=== PATIENT | female | born 1940 | race Caucasian/White ===

== ENCOUNTER 2017-06-12 10:00 | Inpatient (IN) | payer MEDICARE, OTHER ==
[~2017-06-12] VITALS: Ht 157.5 cm; Wt 86.2 kg
[2017-06-12] MEDS ORDERED: LOSA50TA PO (10:50)
[2017-06-12] MEDS ORDERED: ASPI-110 PO (10:50)
[2017-06-12] MEDS ORDERED: MULTTAB27 PO (10:50)
[2017-06-12] MEDS ORDERED: GLIP5TAB8 PO (10:50)
[2017-06-12] MEDS ORDERED: SM M250T PO (10:50)
[2017-06-12] MEDS ORDERED: VITA2000 PO (10:50)
[2017-06-12] MEDS ORDERED: NAPR220C22 PO (10:50)
[2017-06-12] MEDS ORDERED: VITA500C18 PO (10:50)
[2017-06-12] MEDS ORDERED: LEVO25TA4 PO (10:50)
[2017-06-12] MEDS ORDERED: METF1000 PO (10:50)
[2017-06-12] MEDS ORDERED: SIMV20TA PO (10:50)
[2017-07-09] MEDS ORDERED: LACTATED RINGER'S 1000 ML IV PRN (10:15)
[2017-07-09] MEDS ORDERED: POVIDONE IODINE 5% (ANTISEPSIS KIT) 4 APPLICATIONS EACH NARE PRN (10:15)
[2017-07-09] MEDS ORDERED: CHLORHEXIDINE GLUCONATE 4% SOLN 120 ML BTL TOPICAL SCH (10:15)
[2017-07-09] MEDS ORDERED: CHLORHEXIDINE GLUCONATE 2 % 1 PACK (2 CLOTHS) TOPICAL PRN (10:15)
[2017-07-09] MEDS ORDERED: ceFAZolin 2 GM PREMIX 50 ML IV SCH (10:15)
[2017-07-09] MEDS ORDERED: VANCOMYCIN 1000 MG/NS 250 ML (for <70 kg) IV SCH ×2 (10:15)
[2017-07-09] MEDS ORDERED: SODIUM CHLORID 0.9% 500 ML IV PRN (10:15)
[2017-07-09] MEDS ORDERED: INSULIN HUMAN REGULAR 1,000 UNITS/10 ML VIAL SQ PRN (10:15)
[2017-07-09] MEDS ORDERED: METOPROLOL TARTRATE 25 MG TAB PO PRN (10:15)
[2017-07-09] MEDS ORDERED: POVIDONE IODINE 7.5% SCRUB 118 ML BOTTLE TOPICAL SCH (10:15)
[2017-07-09] MEDS ORDERED: DEXAMETHASONE SOD PHOS 20 MG/5 ML VIAL IV SCH (10:30)
[2017-07-09] MEDS ORDERED: LEVO50TA4 PO (10:55)
[2017-07-09] MEDS ORDERED: CALC500T37 PO (10:55)
[2017-07-09] MEDS ORDERED: ALEV220T14 PO (10:55)
[2017-07-09] MEDS ORDERED: GLIP1TAB60 PO (10:55)
[2017-07-09] MEDS ORDERED: VITA10002 PO (10:55)
[2017-07-09] MEDS ORDERED: SODIUM CHLORIDE 0.9% IV SCH (11:00)
[2017-07-09] MEDS ORDERED: TRANEXAMIC PERI-ARTICULAR 3,000 MG/NS 100 ML P-ARTICULR SCH ×2 (11:00)
[2017-07-09] MEDS ORDERED: TRANEXAMIC ACID IV SCH (11:00)
[2017-07-09] MEDS ORDERED: ROPIVACAINE PERI-ARTICULAR INJECTION. P-ARTICULR SCH ×5 (11:00)
[2017-07-09] MEDS ORDERED: BUPIVACAINE LIPOSOME PF 1.3% 20 ML VIAL ONE (11:20)
[2017-07-09] MEDS ORDERED: GENTAMICIN SULFATE 80 MG/2 ML VIAL ONE (12:13)
[2017-07-09] MEDS ORDERED: SODIUM CHLORIDE 0.9% FLUSH 5 ML FLUSH IVF PRN (13:15)
[2017-07-09] MEDS ORDERED: diphenhydrAMINE HCL 50 MG/ML VIAL IV PRN (13:15)
[2017-07-09] MEDS ORDERED: MORPHINE SULFATE 4 MG/ML INJ IV PUSH PRN (13:15)
[2017-07-09] MEDS ORDERED: BISACODYL 10 MG SUPP RECTAL PRN (13:15)
[2017-07-09] MEDS ORDERED: ACETAMINOPHEN/HYDROcodone 325 MG/7.5 MG TAB PO PRN (13:15)
[2017-07-09] MEDS ORDERED: Post-op Orders (for Pharmacy) MISC XX ONE (13:15)
[2017-07-09] MEDS ORDERED: ENOX30P SQ (13:17)
[2017-07-09] MEDS ORDERED: HYDR-3288 PO (13:17)
[2017-07-09] MEDS ORDERED: ASPI81CH37 CHEW (13:19)
[2017-07-09] MEDS ORDERED: PILL SPLITTER OTHER PRN (14:00)
[2017-07-09] MEDS ORDERED: LACTATED RINGER'S 1000 ML INJ 1,000 ML IV ONE (14:43)
[2017-07-09] MEDS ORDERED: PROPOFOL 200 MG/20 ML AMP IV ONE (14:43)
[2017-07-09] MEDS ORDERED: ePHEDrine/NS 25 MG/5 ML SYR IV ONE (14:43)
[2017-07-09] MEDS ORDERED: MIDAZOLAM HCL 2 MG/2 ML VIAL ONE (15:25)
--- NOTE | 2017-07-09 16:13 | RADRPT ---
EXAM DATE/TIME: 07/09/2017 15:38 [facility] COMPARISON: No previous studies available for comparison. INDICATIONS : Post op right knee replacement MEDICAL HISTORY : None. SURGICAL HISTORY : None. ENCOUNTER: Initial ACUITY: 1 day PAIN SCORE: 0/10 LOCATION: Right knee FINDINGS: A right total knee arthroplasty is noted with soft tissue emphysema in the subcutaneous tissues, and the joint, and the tibial and femoral components appear well-seated. Normal bone density. CONCLUSION: Postoperative changes. Dionte Jara MD on July 09, 2017 at 16:11 Board Certified Radiologist. This report was verified electronically.
[2017-07-09] MEDS ORDERED: BENZOCAINE-MENTHOL (SUGAR FREE) 15 MG-3.6 MG LOZENGE BUCCAL PRN (17:00)
--- NOTE | 2017-07-09 17:04 | PD.CONS ---
HPI Service [facility] Consult Requested By Mina Lo M.D. Reason for Consult Medical management Primary Care Physician Non-Staff Diagnoses: History of Present Illness Mrs. Lo is 77 yo, with history of breast cancer (right), diabetes mellitus II, hyperlipidemia, hypertension, and hypothyroidism. Mrs. Lo reported onset of right knee pain 5 years ago. Over the interim, she has had increased pain and decreased ambulation, requiring her to use a walker in recent months. It was this latter issue that led her to seek surgery, which Dr. Lo performed on 07/09/17. At time of interview, Mrs. lo reported she was not in pain; nursing reported pt had received spinal block. Mrs. Lo denied fever, nausea, vomiting, cough, shortness of breath, altered bowel/bladder habits, chest or abdominal pain. A 10 pt ROS was conducted and, except as noted above, was negative. Review of Systems Except as stated in HPI: all other systems reviewed are Neg Past Family Social History Allergies: Coded Allergies: Sulfa (Sulfonamide Antibiotics) (Unverified Allergy, Severe, 07/09/17) Past Medical History Breast cancer (right) Diabetes mellitus II Hyperlipidemia Hypertension Hypothyroidism Past Surgical History Appendectomy Cholecystectomy Fascia repair of left thumb Lumpectomy and partial mastectomy of the right breast Oophorectomy Orthoscopic left knee repair Right rotator cuff repair Tonsillectomy Reported Medications Reported Meds & Active Scripts Active Aspirin Low Dose (Aspirin) 81 Mg Chew 81 Mg CHEW BID Lovenox Inj (Enoxaparin Sodium) 30 Mg/0.3 Ml Syr 30 Mg SQ DAILY [place] (Hydrocodone-Acetaminophen) 7.5-325 mg Tab 1-2 Tab PO Q6H PRN Reported Vitamin B-12 (Cyanocobalamin) 1,000 Mcg Tab 1,000 Mcg PO DAILY Levothyroxine (Levothyroxine Sodium) 50 Mcg Tab 50 Mcg PO DAILY Glipizide ER (Glipizide) 2.5 Mg Vanessa 2.5 Mg PO DAILY Take with breakfast or first main meal of the day Calcium Ascorbate 500 Mg Tab 600 Mg PO DAILY Aleve Arthritis (Naproxen Sodium) 220 Mg Tab 440 Mg PO DAILY Multi-Day Vitamins (Multiple Vitamin) 1 Tab Tab 1 Tab PO DAILY Vitamin D3 (Cholecalciferol) 2,000 Unit Cap 2,000 Units PO DAILY Vitamin C Sr (Ascorbic Acid) 500 Mg Caper 1,000 Mg PO DAILY Sm Magnesium (Magnesium) 250 Mg Tab 250 Mg PO DAILY Aspirin 81 (Aspirin) 81 Mg Tabdr 81 Mg PO DAILY Simvastatin 20 Mg Tab 20 Mg PO DAILY Losartan (Losartan Potassium) 50 Mg Tab 50 Mg PO DAILY Metformin (Metformin HCl) 1,000 Mg Tab 1,000 Mg PO BIDPC With meals Active Ordered Medications Current Medications Medications (Trade) Dose Ordered Sig/Jenn Route Start Time Stop Time Status Last Admin Lactated Ringer's 1,000 ml @ 30 mls/hr Q24H PRN IV 07/09/17 10:15 07/12/17 10:14 07/09/17 10:30 Sodium Chloride 500 ml @ 30 mls/hr [id number] PRN IV 07/09/17 10:15 07/12/17 10:14 (Lopressor) 25 mg POWDER ROOM ATTENDANT PRN PO 07/09/17 10:15 07/12/17 10:14 (Betadine 5% Antisepsis Kit) 1 applic POWDER ROOM ATTENDANT PRN EACH NARE 07/09/17 10:15 07/12/17 10:14 07/09/17 10:45 (Chlorhexidine 2% Cloth) 3 pack POWDER ROOM ATTENDANT PRN TOPICAL 07/09/17 10:15 07/12/17 10:14 07/09/17 10:10 (NovoLIN R INJ) See Protocol Table ... POWDER ROOM ATTENDANT PRN SQ 07/09/17 10:15 07/12/17 10:14 (Betadine 7.5% Scrub) 1 applic ONCE TOPICAL 07/09/17 10:15 07/12/17 10:14 07/09/17 10:20 (Hibiclens 4% Top Soln) 1 applic ONCE TOPICAL 07/09/17 10:15 07/12/17 10:14 Cefazolin Sodium/ Dextrose 50 ml @ 100 mls/hr POWDER ROOM ATTENDANT IV 07/09/17 10:15 07/12/17 10:14 07/09/17 12:10 Vancomycin HCl 1000 mg/Sodium Chloride 250 ml @ 250 mls/hr POWDER ROOM ATTENDANT IV 07/09/17 10:15 07/12/17 10:14 07/09/17 12:10 Tranexamic Acid 1213 mg/Sodium Chloride 112.13 ml @ 200 mls/ hr ONCE IV 07/09/17 11:00 07/10/17 17:00 07/09/17 13:25 Ropivacaine 24.63 ml/Ketorolac Tromethamine 30 mg/Epinephrine HCl 0.5 mg/ Clonidine 80 mcg/ Sodium Chloride 100 ml @ 200 mls/hr ONCE P-ARTICULR 07/09/17 11:00 07/10/17 17:00 07/09/17 13:42 Tranexamic Acid 3000 mg/Sodium Chloride 130 ml @ 260 mls/hr ONCE P-ARTICULR 07/09/17 11:00 07/10/17 17:00 07/09/17 13:42 (Decadron Inj) 10 mg POWDER ROOM ATTENDANT IV 07/09/17 10:30 07/10/17 10:29 07/09/17 12:16 (Synthroid) 50 mcg DAILY@0600 PO 07/10/17 06:00 (Cozaar) 50 mg DAILY PO 07/10/17 09:00 (Glucophage) 1,000 mg BIDPC PO 07/09/17 18:00 (Glucotrol) 2.5 mg DAILY PO 07/10/17 09:00 Sodium Chloride 1,000 ml @ 100 mls/hr Q10H IV 07/09/17 13:12 (NS Flush) 2 ml UNSCH PRN IVF 07/09/17 13:15 (NS Flush) 2 ml BID IVF 07/09/17 21:00 Cefazolin Sodium 1000 mg/Sodium Chloride 100 ml @ 200 mls/hr Q6H IV 07/09/17 18:00 07/10/17 06:29 (Lovenox Inj) 30 mg Q24H SQ 07/09/17 13:15 UNV (Morphine Inj) 3 mg Q3H PRN IV PUSH 07/09/17 13:15 ([place] 7.5-325 Mg) 1 tab Q4H PRN PO 07/09/17 13:15 ([place] 7.5-325 Mg) 2 tab Q4H PRN PO 07/09/17 13:15 (Theragran M Tab) 1 tab BID PO 07/10/17 21:00 09/08/17 20:59 (Zofran Inj) 4 mg Q6H PRN IVP 07/09/17 13:15 (Colace) 100 mg BID PO 07/10/17 21:00 (Ambien) 5 mg HS PRN PO 07/09/17 21:00 (Dulcolax Supp) 10 mg DAILY PRN RECTAL 07/09/17 13:15 (Benadryl Inj) 25 mg Q6H PRN IV 07/09/17 13:15 (Pill Splitter) 1 ea UNSCH PRN OTHER 07/09/17 14:00 Family History Atrial fibrillation: mother, brother, and maternal aunt. Breast Cancer: maternal aunt. Mother secondary to complications of cardiac disease. Father in combat. Social History Patient reported smoking 1/2 pack of cigarettes a day for one year. She stated she has not smoked in over 50 years. Pt denied alcohol use pt denied illicit/recreational drug use. Physical Exam Vital Signs Vital Signs Date Time Temp Pulse Resp B/P (MAP) Pulse Ox O2 Delivery O2 Flow Rate FiO2 07/09/17 10:56 98.2 83 18 146/65 (92) 96 Physical Exam GENERAL: This is a well-nourished, well-developed patient, in no apparent distress. SKIN: No rashes, ecchymoses or lesions. Cool and dry. Right knee wrapped in evelyn bandage. HEAD: Atraumatic. Normocephalic. EYES: Pupils equal round and reactive. Extraocular motions intact. No scleral icterus. No injection or drainage. ENT: Nose without bleeding or purulent drainage. Airway patent. NECK: Trachea midline. No lymphadenopathy. Supple and nontender. CARDIOVASCULAR: Regular rate and rhythm without murmurs, gallops, or rubs. RESPIRATORY: Clear to auscultation. Breath sounds equal bilaterally. No wheezes , rales, or rhonchi. GASTROINTESTINAL: Abdomen soft, non-tender, nondistended. No hepato-splenomegaly , or guarding. MUSCULOSKELETAL: Extremities without clubbing, cyanosis, or edema. No joint tenderness, effusion, or edema noted. NEUROLOGICAL: Awake and alert. Cranial nerves II through XII intact. Motor and sensory grossly within normal limits. Speech was clear and fluent. Assessment and Plan Problem List: (1) Hypertension, benign ICD Code: I10 - Essential (primary) hypertension Status: Chronic (2) Hypothyroidism ICD Code: E03.9 - Hypothyroidism, unspecified Status: Chronic (3) Diabetes mellitus type II, controlled, with no complications ICD Code: E11.9 - Type 2 diabetes mellitus without complications Status: Chronic Assessment and Plan Mrs. Lo is 77 yo, with history of breast cancer (right), diabetes mellitus II, hyperlipidemia, hypertension, and hypothyroidism. Mrs. Lo reported onset of right knee pain 5 years ago. Over the interim, she has had increased pain and decreased ambulation, requiring her to use a walker in recent months. It was this latter issue that led her to seek surgery, which Dr. Lo performed on 07/09/17. Status post total right knee arthroplasty -Rehabilitation per Orthopedics. -Pain management IV and oral agents. -Check am labs Hypertension -Continue home regimen of losartan 50 mg daily. Diabetes mellitus II -Continue home regimen glipizide 2.5 mg PO daily -Continue Metformin 1000 mg po twice daily PC Hypothyroidism -Levothyroxine 50 mcg daily DVT prophylaxis -Lovenox 30 mg sq q 24 when cleared by surgery. -SCD's/Milan hose Diet: 2000 calorie ADA consistent carbohydrate Discussed Condition With Pt and Dr. Blanton. Problem Qualifiers (1) Hypothyroidism: Qualified Codes: E03.9 - Hypothyroidism, unspecified (2) Diabetes mellitus type II, controlled, with no complications: Qualified Codes: E11.9 - Type 2 diabetes mellitus without complications Junito Yao Jr. Jul 09, 2017 17:04
[2017-07-09] MEDS: SODIUM CHLOR 0.9% 1000 ML INJ 1,000 ML IV SCH ×2 (17:34→23:11)
[2017-07-09] MEDS: metFORMIN HCL 500 MG TAB PO SCH (18:00)
[2017-07-09 18:27] VITALS: BP 118/53; PULSE 78; RESP 18; TEMP 96.1; O2SAT 92
[2017-07-09 20:00] VITALS: BP 113/58; PULSE 68; RESP 17; TEMP 96.8; O2SAT 93
[2017-07-09] MEDS: ONDANSETRON HCL 4 MG/2 ML VIAL IVP PRN (20:15)
[2017-07-09] MEDS: SODIUM CHLORIDE 0.9% FLUSH 5 ML FLUSH IVF SCH (21:00)
[2017-07-09] MEDS: ZOLPIDEM TARTRATE 5 MG TAB PO PRN (23:10)
[2017-07-09] MEDS: ACETAMINOPHEN/HYDROcodone 325 MG/7.5 MG TAB PO PRN (23:10)
[2017-07-10 01:05] VITALS: BP 125/60; PULSE 64; RESP 18; TEMP 97; O2SAT 94
[2017-07-10 04:25] VITALS: BP 134/75; PULSE 61; RESP 17; TEMP 96.8; O2SAT 95
[2017-07-10] MEDS: LEVOTHYROXINE SODIUM 50 MCG TAB PO SCH (06:30)
[2017-07-10] MEDS: SODIUM CHLOR 0.9% 1000 ML INJ 1,000 ML IV SCH ×2 (07:18→16:29)
[2017-07-10 08:00] VITALS: BP 131/69; PULSE 59; RESP 17; TEMP 94.4; O2SAT 95
[2017-07-10] MEDS: metFORMIN HCL 500 MG TAB PO SCH ×2 (08:40→16:18)
[2017-07-10] MEDS: LOSARTAN 50 MG TAB PO SCH (08:40)
[2017-07-10] MEDS: ONDANSETRON HCL 4 MG/2 ML VIAL IVP PRN ×2 (08:40→14:02)
[2017-07-10] MEDS: ACETAMINOPHEN/HYDROcodone 325 MG/7.5 MG TAB PO PRN ×4 (08:41→20:43)
[2017-07-10] MEDS: SODIUM CHLORIDE 0.9% FLUSH 5 ML FLUSH IVF SCH ×2 (08:44→20:43)
[2017-07-10] MEDS ORDERED: glipiZIDE 5 MG TAB PO SCH ×2 (09:00→21:00)
--- NOTE | 2017-07-10 10:51 | HHI.PR ---
Subjective Remarks Some nausea reported when seen this morning. Patient did have an episode of emesis overnight. Labs are pending. She is status post right knee surgery. Objective Vital Signs Date Time Temp Pulse Resp B/P (MAP) Pulse Ox O2 Delivery O2 Flow Rate FiO2 07/10/17 08:00 94.4 59 17 131/69 (89) 95 07/10/17 06:11 21 07/10/17 04:25 96.8 61 17 134/75 (94) 95 07/10/17 01:05 97.0 64 18 125/60 (81) 94 07/09/17 20:00 96.8 68 17 113/58 (76) 93 07/09/17 18:27 96.1 78 18 118/53 (74) 92 07/09/17 17:30 97.5 78 17 119/58 (78) 96 Room Air 07/09/17 17:15 79 19 106/56 (73) 93 Room Air 07/09/17 17:00 81 18 118/60 (79) 94 Room Air 07/09/17 16:45 81 20 104/57 (73) 94 Room Air 07/09/17 16:30 80 17 100/55 (70) 95 Room Air 07/09/17 16:15 80 17 100/55 (70) 95 Room Air 07/09/17 16:00 80 19 100/52 (68) 94 Room Air 07/09/17 15:45 80 16 104/57 (73) 92 Room Air 07/09/17 15:30 80 17 109/58 (75) 92 Room Air 07/09/17 15:15 97.4 88 16 108/64 (79) 94 Room Air 07/09/17 10:56 98.2 83 18 146/65 (92) 96 I/O 07/09/17 07/09/17 07/09/17 07/10/17 07/10/17 07/10/17 06:59 14:59 22:59 06:59 14:59 22:59 Intake Total 1690 ml 950 ml 100 ml Output Total 50 ml 450 ml 250 ml Balance -50 ml 1240 ml 700 ml 100 ml Intake Oral 240 ml IV Total 150 ml 950 ml 100 ml Other 1300 ml Output Urine Total 450 ml 250 ml Estimated Blood Loss 50 ml # Bowel Movements 0 Objective Remarks GENERAL: NAD, A&Ox3 HEAD: Normocephalic. NECK: Supple, trachea midline. No lymphadenopathy. EYES: No scleral icterus. No injection or drainage. CARDIOVASCULAR: Regular rate and rhythm without murmurs, gallops, or rubs. RESPIRATORY: Breath sounds equal bilaterally. No accessory muscle use. GASTROINTESTINAL: Abdomen soft, non-tender, nondistended. MUSCULOSKELETAL: No cyanosis, or edema. Right knee bandaged. SKIN: Warm and dry. NEURO: No focal neurological deficitis. A/P Problem List: (1) Primary localized osteoarthrosis, lower leg ICD Code: M17.10 - Unilateral primary osteoarthritis, unspecified knee (2) Diabetes mellitus type II, controlled, with no complications ICD Code: E11.9 - Type 2 diabetes mellitus without complications Status: Chronic (3) Hypothyroidism ICD Code: E03.9 - Hypothyroidism, unspecified Status: Chronic (4) Hypertension, benign ICD Code: I10 - Essential (primary) hypertension Status: Chronic Assessment and Plan Assessment and Plan 77-year-old female status post right knee surgery Status post total right knee arthroplasty Continue PT Continue pain management Follow for improvement in nausea Orthopedics following CBC pending Hypertension Continue losartan Follow blood pressures Diabetes mellitus II Continue metformin Continue glipizide Follow blood sugars Diabetic diet Hypothyroidism Continue Synthroid Follows as an outpatient DVT prophylaxis Lovenox Problem Qualifiers (1) Diabetes mellitus type II, controlled, with no complications: Qualified Codes: E11.9 - Type 2 diabetes mellitus without complications (2) Hypothyroidism: Qualified Codes: E03.9 - Hypothyroidism, unspecified Octavio Blanton MD Jul 10, 2017 10:51
[2017-07-10 11:58] VITALS: BP 122/58; PULSE 61; RESP 16; TEMP 95.4; O2SAT 94
--- NOTE | 2017-07-10 12:05 | MP ---
cc: BRITTANEY MOODY DATE OF SURGERY 07/09/2017 PREOPERATIVE DIAGNOSIS Right knee osteoarthritis. POSTOPERATIVE DIAGNOSIS Right knee osteoarthritis. PROCEDURE Right total knee arthroplasty. SURGEON Dr. Brittaney Moody [employer]INO [employer] CASHIER Omer Paula PA-C ANESTHESIA Spinal with a femoral nerve adductor canal block. ESTIMATED BLOOD LOSS 50 cc. TOURNIQUET TIME 49 minutes at 250 mmHg COMPLICATIONS None. IMAGING USED DePuy Attune size 5 posterior stabilized femoral component. Size 4 rotating platform tibia baseplate. Size 8-mm polyethylene tibial insert. Size 35 patella. JUSTIFICATION This patient is a 77-year-old female with a history of severe end-stage osteoarthritis involving the right knee. She has severe, disabling pain on standing, walking, ambulation, weightbearing activities and even severe pain at rest. Her pain interferes with activities of daily living. She has failed greater than three months of nonoperative conservative treatment modalities to include medication therapy, injections, ambulatory assistive aids, home exercise program, activity modification, weight loss attempts, use of a walker. X-rays of the right knee reveal severe end-stage osteoarthritis with [id number] joint space narrowing, subchondral sclerosis, subchondral cysts, osteophyte formation, valgus deformity and subluxation. The patient was counseled as to the risks, benefits and alternatives to a right total knee arthroplasty. The risks were discussed which include but are not limited to anesthesia, bleeding, infection, damage to nerves, blood vessels, pain, stiffness, failure of the components, blood clots, pulmonary embolism and even . The patient's pain is severe. She favored the benefits over the risks and did wish to proceed with surgery. PROCEDURE IN DETAIL Written consent was obtained. The patient was identified by name and taken to the operating room, placed supine on the operating room table. Spinal anesthesia was administered as well as a right adductor canal femoral nerve block. The patent was administered 2 grams of IV Ancef and 1 gram of IV vancomycin. A well-padded tourniquet was placed on the right thigh, the right lower extremity prepped and draped using isopropyl alcohol, Hibiclens solution and ChloraPrep solution. After a time-out was performed an Esmarch bandage was used to exsanguinate the right lower extremity and the tourniquet inflated to 250 mmHg. A longitudinal incision was made over the anterior aspect of the right knee. A medial parapatellar arthrotomy incision was performed. The patella was everted. The patella resection guide was used to resect 7 mm of patella. The size 35-mm guide was placed and three drill holes were placed. The 35-mm trial fit well. Attention was turned to the femur where an intramedullary guide rocio was placed. The distal femoral guide was set to remove 13 mm of the distal femur 5 degrees off the anatomic valgus axis alignment. An oscillating saw was used to perform the distal femoral cut. Attention was turned to the tibia where an extramedullary tibial guide was set to remove 6 mm off the lowest portion of the medial tibial plateau. The tibial guide was pinned in place and the tibial was cut was performed. There was evidence of dishing and bone loss in the lateral aspect of the tibial plateau. I took an additional 2 mm of tibia with the resection guide to get underneath the lateral defect of the tibia. At this point a 5-mm spacer block showed full extension. Attention was turned back to the femur. AP spacer block measured a size 5. The anterior reference, 3-degree external rotational guide was used to pin the size [address] The anterior, posterior and chamfer cuts were performed. A size 5 PCL box guide was pinned in place and PCL was boxed out with an oscillating saw. The medial and lateral meniscus remnants were removed as well as bone and soft tissue debris from the posterior portion of the knee. The patient had had significant tightness along the lateral compartment and the popliteus as well as portions of the lateral collateral ligament was released to allow for varus-valgus balancing. The size 4 tibial baseplate was pinned in place, the tibia was drilled and punched. Trial components were evaluated and final components cemented in place. A lateral release was performed which allowed for central patellar tracking. With the 8-mm polyethylene tibial insert, the leg could achieve full extension to 0 degrees and flexion to 140, no evidence of tibial lift-off. Varus-valgus balance appeared appropriate and symmetric and the patella was noted to track centrally after lateral release. The tourniquet was deflated and Bovie cautery was used for hemostasis. The knee was thoroughly irrigated with sterile saline pulse lavage antibiotic impregnated solution. The arthrotomy incision was closed with #1 Vicryl suture, the subcutaneous layer closed with 2-0 Vicryl suture and the skin was closed with Dermabond. Sterile dressings were applied. The patient tolerated the procedure well. There was no intraoperative complication noted. Omer Paula, physician rehabilitation assistant certified, was present during the entire procedure to include patient positioning and the procedure itself. The medical necessity of a physician rehabilitation assistant was indicated in this case due to the complexity of the procedure itself. He assisted with appropriate manipulation of the leg, retraction of muscle, tendon, bone and neurovascular structures. He also assisted with preparation of bone and also implantation of the prosthetic replacement. Brittaney Moody MD JWM/SSB /2:48 PM /11:37 AM
--- NOTE | 2017-07-10 12:29 | PD.ORT.PN ---
Subjective Post Op Day #: 1 Subjective Remarks pain tolerable. nausea. Objective Vitals Vital Signs Date Time Temp Pulse Resp B/P (MAP) Pulse Ox O2 Delivery O2 Flow Rate FiO2 07/10/17 11:58 95.4 61 16 122/58 (79) 94 07/10/17 08:00 94.4 59 17 131/69 (89) 95 07/10/17 06:11 21 07/10/17 04:25 96.8 61 17 134/75 (94) 95 07/10/17 01:05 97.0 64 18 125/60 (81) 94 07/09/17 20:00 96.8 68 17 113/58 (76) 93 07/09/17 18:27 96.1 78 18 118/53 (74) 92 07/09/17 17:30 97.5 78 17 119/58 (78) 96 Room Air 07/09/17 17:15 79 19 106/56 (73) 93 Room Air 07/09/17 17:00 81 18 118/60 (79) 94 Room Air 07/09/17 16:45 81 20 104/57 (73) 94 Room Air 07/09/17 16:30 80 17 100/55 (70) 95 Room Air 07/09/17 16:15 80 17 100/55 (70) 95 Room Air 07/09/17 16:00 80 19 100/52 (68) 94 Room Air 07/09/17 15:45 80 16 104/57 (73) 92 Room Air 07/09/17 15:30 80 17 109/58 (75) 92 Room Air 07/09/17 15:15 97.4 88 16 108/64 (79) 94 Room Air I/O 07/09/17 07/09/17 07/09/17 07/10/17 07/10/17 07/10/17 06:59 14:59 22:59 06:59 14:59 22:59 Intake Total 1690 ml 950 ml 100 ml Output Total 50 ml 450 ml 250 ml Balance -50 ml 1240 ml 700 ml 100 ml Intake Oral 240 ml IV Total 150 ml 950 ml 100 ml Other 1300 ml Output Urine Total 450 ml 250 ml Estimated Blood Loss 50 ml # Bowel Movements 0 Imaging Last 24 hours Impressions Knee X-Ray 07/09/17 1312 Signed Impressions: Service Date/Time: Sunday, July 09, 2017 15:38 - CONCLUSION: Postoperative changes. Dionte Jara MD Objective Remarks in bed, using cpm, nad dressing c/d/i neg reginald duenasi Assessment & Plan Ortho Post Op Day #: 1 Problem List: Assessment and Plan s/p R TKA wbat daily dressing changes lovenox d/c planning home with [facility] and pt - likely tomorrow rx in chart f/up dr. lo 2 weeks Mina Paula Jul 10, 2017 12:29
--- NOTE | 2017-07-10 12:31 | HHI.DCPOC ---
Discharge Care Plan Diagnosis: (1) Primary localized osteoarthrosis, lower leg Your Health Problems Are: Difficulty with ADL Goals to Promote Your Health * To prevent worsening of your condition and complications * To maintain your health at the optimal level Directions to Meet Your Goals Take your medications as prescribed Follow your dietary instruction Follow activity as directed Keep your appointments as scheduled Take your immunizations and boosters as scheduled If your symptoms worsen call your PCP, if no PCP go to Urgent Care Center or Emergency Room Smoking is Dangerous to Your Health. Avoid second hand smoke Call the 24-hour hour crisis hotline for domestic abuse at Mina Paula Jul 10, 2017 12:31
--- NOTE | 2017-07-10 12:31 | HHI.FF ---
Face to Face Verification Diagnosis: (1) Primary localized osteoarthrosis, lower leg Physical Therapy Gait training, Safety evaluation, Transfer training, bed to chair Knee: Total knee, Protocol: Right, Full weight bearing Right LE Weight Bearing: WB as tolerated Nursing RN: 3 days/week x 2 weeks Nursing: Mark teaching, Dressing changes Dressing Changes: Daily dressing change I have seen patient Dorcas Harding on 07/10/17. My clinical findings support the need for the requested home health care services because: Limited ability to care for self High risk of falls I certify that my clinical findings support that this patient is homebound because: Post-op weakness Unsteady gait/balance Mina Paula Jul 10, 2017 12:31
[2017-07-10] MEDS ORDERED: CPMMACHINE (12:33)
[2017-07-10] MEDS ORDERED: COMMODE 3-IN-11 MIS (12:33)
[2017-07-10] MEDS ORDERED: WALKER WHEELS/F1 MIS (12:34)
[2017-07-10 13:04] LABS: HEMATOCRIT 38.7 % (35.0-46.0); MEAN CELL VOLUME 94.8 FL (80.0-100.0); MEAN CORPUSCULAR HEMOGLOBIN 31.7 PG (27.0-34.0); MEAN CORPUSCULAR HGB CONC 33.5 % (32.0-36.0); PLATELET COUNT 169 TH/MM3 (150-450); RED BLOOD COUNT 4.08 MIL/MM3 (4.00-5.30); RED CELL DISTRIBUTION WIDTH 13.4 % (11.6-17.2); REVIEW FLAG FINAL; WHITE BLOOD COUNT 10.5 TH/MM3 (4.0-11.0)
[2017-07-10 13:27] LABS: POTASSIUM 4.6 MEQ/L (3.5-5.1)
[2017-07-10] MEDS: ENOXAPARIN SODIUM 30 MG/0.3 ML SYRINGE SQ SCH (14:25)
[2017-07-10 16:19] VITALS: BP 118/56; PULSE 69; RESP 17; TEMP 96; O2SAT 96
[2017-07-10 20:30] VITALS: BP 120/60; PULSE 69; RESP 17; TEMP 97.4; O2SAT 96
[2017-07-10] MEDS: DOCUSATE SODIUM 100 MG CAP PO SCH (20:43)
[2017-07-10] MEDS: MULTIVITAMINS/MINERALS THERAPEUTIC TAB PO SCH (20:43)
[2017-07-10] MEDS: ZOLPIDEM TARTRATE 5 MG TAB PO PRN (22:19)
[2017-07-11 00:30] VITALS: BP 119/67; PULSE 77; RESP 17; TEMP 98; O2SAT 96
[2017-07-11] MEDS: ACETAMINOPHEN/HYDROcodone 325 MG/7.5 MG TAB PO PRN ×3 (01:47→12:50)
[2017-07-11] MEDS: SODIUM CHLOR 0.9% 1000 ML INJ 1,000 ML IV SCH ×2 (05:12→09:48)
[2017-07-11 07:38] VITALS: BP 138/62; PULSE 79; RESP 18; TEMP 97.5; O2SAT 94
[2017-07-11] MEDS: MULTIVITAMINS/MINERALS THERAPEUTIC TAB PO SCH (07:58)
[2017-07-11] MEDS: LOSARTAN 50 MG TAB PO SCH (07:58)
[2017-07-11] MEDS: DOCUSATE SODIUM 100 MG CAP PO SCH (07:58)
[2017-07-11] MEDS: metFORMIN HCL 500 MG TAB PO SCH (07:59)
[2017-07-11] MEDS: ONDANSETRON HCL 4 MG/2 ML VIAL IVP PRN ×2 (07:59→15:05)
[2017-07-11] MEDS: SODIUM CHLORIDE 0.9% FLUSH 5 ML FLUSH IVF SCH (08:05)
[2017-07-11] MEDS: LEVOTHYROXINE SODIUM 50 MCG TAB PO SCH (08:07)
[2017-07-11 10:53] VITALS: BP 110/54; PULSE 75; RESP 15; TEMP 95.6; O2SAT 94
--- NOTE | 2017-07-11 11:15 | HHI.PR ---
Subjective Remarks Patient continues to do well postop and is ambulating well with walker. She has no further episodes of nausea despite narcotic use. Medically stable for discharge home today. She'll continue PT at home. Objective Vital Signs Date Time Temp Pulse Resp B/P (MAP) Pulse Ox O2 Delivery O2 Flow Rate FiO2 07/11/17 10:53 95.6 75 15 110/54 (72) 94 07/11/17 07:38 97.5 79 18 138/62 (87) 94 07/11/17 00:30 98.0 77 17 119/67 (84) 96 07/10/17 20:30 97.4 69 17 120/60 (80) 96 07/10/17 16:19 96.0 69 17 118/56 (76) 96 07/10/17 11:58 95.4 61 16 122/58 (79) 94 I/O 07/10/17 07/10/17 07/10/17 07/11/17 07/11/17 07/11/17 07:00 15:00 23:00 07:00 15:00 23:00 Intake Total 1050 ml 480 ml 470 ml 120 ml Output Total 250 ml 200 ml Balance 800 ml 280 ml 470 ml 120 ml Intake Oral 480 ml 240 ml 120 ml IV Total 1050 ml 230 ml Output Urine Total 250 ml 200 ml # Voids 1 1 2 # Bowel Movements 0 0 0 Result Diagram: 07/10/17 1238 07/10/17 1238 Objective Remarks GENERAL: NAD, A&Ox3 HEAD: Normocephalic. NECK: Supple, trachea midline. No lymphadenopathy. EYES: No scleral icterus. No injection or drainage. CARDIOVASCULAR: Regular rate and rhythm without murmurs, gallops, or rubs. RESPIRATORY: Breath sounds equal bilaterally. No accessory muscle use. GASTROINTESTINAL: Abdomen soft, non-tender, nondistended. MUSCULOSKELETAL: No cyanosis, or edema. Right knee bandaged. SKIN: Warm and dry. NEURO: No focal neurological deficitis. A/P Problem List: (1) Primary localized osteoarthrosis, lower leg ICD Code: M17.10 - Unilateral primary osteoarthritis, unspecified knee (2) Diabetes mellitus type II, controlled, with no complications ICD Code: E11.9 - Type 2 diabetes mellitus without complications Status: Chronic (3) Hypothyroidism ICD Code: E03.9 - Hypothyroidism, unspecified Status: Chronic (4) Hypertension, benign ICD Code: I10 - Essential (primary) hypertension Status: Chronic Assessment and Plan Assessment and Plan 77-year-old female status post right knee surgery. Doing well postop. Medically stable for discharge to home with home health and PT. Status post total right knee arthroplasty Continue PT Continue pain management Follow for improvement in nausea Orthopedics following CBC pending Hypertension Continue losartan Follow blood pressures Diabetes mellitus II Continue metformin Continue glipizide Follow blood sugars Diabetic diet Hypothyroidism Continue Synthroid Follows as an outpatient DVT prophylaxis Lovenox Problem Qualifiers (1) Primary localized osteoarthrosis, lower leg: Qualified Codes: M17.11 - Unilateral primary osteoarthritis, right knee (2) Diabetes mellitus type II, controlled, with no complications: Qualified Codes: E11.9 - Type 2 diabetes mellitus without complications (3) Hypothyroidism: Qualified Codes: E03.9 - Hypothyroidism, unspecified Octavio Blanton MD Jul 11, 2017 11:15
--- NOTE | 2017-07-11 12:56 | PD.ORT.PN ---
Subjective Post Op Day #: 2 Subjective Remarks pain tolerable. denies cp and sob. Objective Vitals Vital Signs Date Time Temp Pulse Resp B/P (MAP) Pulse Ox O2 Delivery O2 Flow Rate FiO2 07/11/17 10:53 95.6 75 15 110/54 (72) 94 07/11/17 07:38 97.5 79 18 138/62 (87) 94 07/11/17 00:30 98.0 77 17 119/67 (84) 96 07/10/17 20:30 97.4 69 17 120/60 (80) 96 07/10/17 16:19 96.0 69 17 118/56 (76) 96 I/O 07/10/17 07/10/17 07/10/17 07/11/17 07/11/17 07/11/17 07:00 15:00 23:00 07:00 15:00 23:00 Intake Total 1050 ml 480 ml 470 ml 120 ml Output Total 250 ml 200 ml Balance 800 ml 280 ml 470 ml 120 ml Intake Oral 480 ml 240 ml 120 ml IV Total 1050 ml 230 ml Output Urine Total 250 ml 200 ml # Voids 1 1 2 # Bowel Movements 0 0 0 Result Diagram: 07/10/17 1238 07/10/17 1238 Imaging Last 24 hours Impressions Knee X-Ray 07/09/17 1312 Signed Impressions: Service Date/Time: Sunday, July 09, 2017 15:38 - CONCLUSION: Postoperative changes. Dionte Jara MD Objective Remarks in bed, nad dressing c/d/i neg homans nvi Assessment & Plan Ortho Post Op Day #: 2 Problem List: Assessment and Plan s/p R TKA wbat daily dressing changes lovenox d/c planning home with [facility] and pt - cleared today after PT rx in chart f/up dr. lo 2 weeks Mina Paula Jul 11, 2017 12:56
[2017-07-11 14:59] VITALS: BP 134/65; PULSE 85; RESP 16; TEMP 95.8; O2SAT 93
[2017-07-11] MEDS: ENOXAPARIN SODIUM 30 MG/0.3 ML SYRINGE SQ SCH (15:05)
--- NOTE | 2017-07-21 06:51 | MD ---
cc: BRITTANEY MOODY M.D. ADMISSION DATE: 07/09/2017 DISCHARGE DATE: 07/11/2017 ADMISSION DIAGNOSIS Severe degenerative osteoarthritis, right knee. DISCHARGE DIAGNOSIS Severe degenerative osteoarthritis, right knee. HISTORY OF PRESENT ILLNESS Ms. Moody is a 77-year-old female who has been a longstanding patient of Brittaney Moody at the [facility]. She has had progressive knee pain for numerous years for which she has received treatment for this ailment. She notes currently the knee pain is inhibiting her activities of daily living and limiting her ability to ambulate. She notes the pain is aggravated by weightbearing activities and she has no alleviating factors at this point in time, although in the past she has tried medications, bracing, assistive devices such as a rolling walker, physical therapy, home exercises, weight loss attempts and corticosteroid injection without relief of symptoms. She does have x-ray evidence of severe degenerative osteoarthritis of the right knee. While in the office the patient was counseled on her diagnosis and treatment options, risks, benefits, indications of all were discussed. The patient did elect to proceed with surgical intervention to include a right total knee arthroplasty. DATE OF SURGERY 07/09/2017, right total knee arthroplasty. POSTOP Postop after surgery the patient was admitted to [facility] where she received appropriate medical management, pain control, DVT prophylaxis as well as physical therapy. DISCHARGE One being discharged from the hospital the patient is cleared to go home where she will receive home health care and home physical therapy. She is in stable condition. She may weight-bear as tolerated with fall precautions. She has received daily dressing changes and has been instructed on appropriate wound care management. Patient has been provided prescriptions for pain control as well as DVT prophylaxis medication. She has been provided a follow-up appointment to see Dr. Brittaney Moody in approximately 2 weeks from her date of surgery. The patient has asked appropriate questions which have been answered. The patient has been discharged. Dictated by: CHRIS Rogel MD MARVIN Robert/DILCIA /12:50 PM /6:48 AM
== END 2017-07-11 17:02 | disposition home health service (06) | DRG 470 ==
LOC: HSDI 07-09 09:46 → UNDODISIN 07-09 16:15 → N06B 07-09 18:01 → EDUNIT# 07-11 07:00
PROVIDERS: ADMIT Orthopaedic Surgery Sports Medicine; ATTEND Orthopaedic Surgery Sports Medicine
PROC: 0SRC0J9 Replacement of Right Knee Joint with Synthetic Substitute, Cemented, Open Approach (ICD-10-PCS; principal; 2017-07-09 12:59)
DX: M17.11 Unilateral primary osteoarthritis, right knee (principal); E11.9 Type 2 diabetes mellitus without complications; I10 Essential (primary) hypertension; E78.5 Hyperlipidemia, unspecified; Z85.3 Personal history of malignant neoplasm of breast; E03.9 Hypothyroidism, unspecified; Z79.82 Long term (current) use of aspirin
CPT/HCPCS: 73560; 80048; 82948; 85027; 86850; 86900; 86901; 94150; C1776; C9290; J0171; J0690; J0735; J1100; J1580; J1650; J1885; J2250; J2405; J2795; J3010; J3370; J7030; J7050; J7120; L1830

== ENCOUNTER → 2017-06-12 | Outpatient (CLI) | payer MEDICARE, OTHER ==
[~2017-06-12] MED LIST: ASPI-110 PO; GLIP5TAB8 PO; LEVO25TA4 PO; LOSA50TA PO; METF1000 PO; MULTTAB27 PO; NAPR220C22 PO; SIMV20TA PO; SM M250T PO; VITA2000 PO; VITA500C18 PO
[2017-06-12 10:41] LABS: AUTOMATED NEUTROPHIL # 3.7 TH/MM3 (1.8-7.7); BASOPHIL % 0.4 % (0.0-2.0); EOSINOPHIL # 0.2 TH/MM3 (0-0.4); EOSINOPHIL % 2.6 % (0.0-4.0); HEMATOCRIT 45.2 % (35.0-46.0); HEMO FLAGS DIFF FINAL; LYMPH % 25.2 % (9.0-44.0); LYMPHOCYTE # 1.4 TH/MM3 (1.0-4.8); MEAN CELL VOLUME 94.4 FL (80.0-100.0); MEAN CORPUSCULAR HEMOGLOBIN 30.9 PG (27.0-34.0); MEAN CORPUSCULAR HGB CONC 32.8 % (32.0-36.0); MONO % 6.8 % (0.0-8.0); PLATELET COUNT 211 TH/MM3 (150-450); RED BLOOD COUNT 4.79 MIL/MM3 (4.00-5.30); WHITE BLOOD COUNT 5.7 TH/MM3 (4.0-11.0)
[2017-06-12 10:54] LABS: APTT (PATIENT) 27.3 SEC (24.3-30.1); PROTHROMBIN TIME - PATIENT 10.6 SEC (9.8-11.6)
[2017-06-12 11:01] LABS: BACTERIA, URINE RARE /hpf; BLOOD, URINE MOD (NEG); GLUCOSE,URINE NEG (NEG); KETONE, URINE NEG (NEG); MUCUS URINE FEW /lpf (OCC); NITRITE,URINE NEG (NEG); SQUAMOUS EPITHELIAL CELL URINE 5 /hpf (0-5); TRANSITIONAL EPI CELLS, URINE <1 /hpf; URINE COLOR YELLOW (YELLW/STRAW)
[2017-06-12 11:03] LABS: COMMENT (UR) CULTURE INDICATED; CULTURE IF INDICATED CULTURE INDICATED
[2017-06-12 11:12] LABS: ALT (GPT) 19 U/L (10-53); ANION GAP 5 MEQ/L (5-15); AST (GOT) 14 U/L (15-37); BICARBONATE 29.6 MEQ/L (21.0-32.0); BLOOD UREA NITROGEN 37 MG/DL (7-18); CHLORIDE 107 MEQ/L (98-107); GLOMERULAR FILTRATION RATE 87 ML/MIN (>89); GLUCOSE,FASTING 137 MG/DL (74-99); POTASSIUM 4.5 MEQ/L (3.5-5.1); SODIUM (NA) 142 MEQ/L (136-145)
[2017-06-12 11:14] LABS: ALKALINE PHOSPHATASE 66 U/L (45-117); TOTAL BILIRUBIN ADULT 0.5 MG/DL (0.2-1.0)
[2017-06-12 11:30] LABS: WESTERGREN SEDIMENTATION RATE 6 mm/hr (0-30)
--- NOTE | 2017-06-12 12:03 | RADRPT ---
EXAM DATE/TIME: 06/12/2017 11:30 [facility] COMPARISON: No previous studies available for comparison. INDICATIONS : Evaluate for pneumonia, pneumothorax and communicable diseases. Pre-op knee surgery MEDICAL HISTORY : None. SURGICAL HISTORY : Rotator cuff ENCOUNTER: Initial ACUITY: 1 day PAIN SCORE: 0/10 LOCATION: Chest FINDINGS: The heart and mediastinal structures are normal. The pulmonary vascular pattern is normal. The lung s are clear. Degenerative changes and scoliosis of the thoracolumbar spine are noted. Degenerative changes are also noted involving the shoulders bilaterally. There is narrowing of the subacromial sp aces suggestive of rotator cuff pathology bilaterally. Clinical correlation is recommended. CONCLUSION: 1. No acute focal pulmonary infiltrate or pulmonary vascular congestion. 2. Degenerative changes and scoliosis of the thoracolumbar spine. 3. Degenerative changes and probable rotator cuff pathology within both shoulders. Clinical correla tion is recommended. Quintin Gerardo MD on June 12, 2017 at 11:53 Board Certified Radiologist. This report was verified electronically.
--- NOTE | 2017-06-12 15:43 | EKG ---
Date Performed: 06/12/2017 Time Performed: 10:25:31 PTAGE: 77 years EKG: Sinus rhythm WITH OCCASIONAL VENTRICULAR PREMATURE COMPLEXES POSSIBLE LEFT ATRIAL ENLARGEMENT MARKED LEFT AXIS DE VIATION MODERATE INTRAVENTRICULAR CONDUCTION DELAY NONSPECIFIC T-WAVE ABNORMALITY ABNORMAL ECG NO PREVIOUS TRACING DOCTOR: Jonathan Quezada Interpretating Date/Time 06/12/2017 15:41:25
== END ==
LOC: CPRE 09:54
PROVIDERS: ATTEND Orthopaedic Surgery Sports Medicine
DX: Z01.812 Encounter for preprocedural laboratory examination (principal); Z01.811 Encounter for preprocedural respiratory examination; Z01.810 Encounter for preprocedural cardiovascular examination; M17.11 Unilateral primary osteoarthritis, right knee; M25.60 Stiffness of unspecified joint, not elsewhere classified; R94.31 Abnormal electrocardiogram [ECG] [EKG]; R82.99 Other abnormal findings in urine; Z96.60 Presence of unspecified orthopedic joint implant; Z79.01 Long term (current) use of anticoagulants
CPT/HCPCS: 36415; 71020; 80053; 81001; 85025; 85610; 85652; 85730; 87086; 93005